=== PATIENT | female | born 1955 | race Caucasian/White ===

== ENCOUNTER 2024-10-25 04:07 | Emergency (ER) | payer MEDICARE, SELFPAY ==
[2024-10-25 04:43] LABS: % Basophils 0.9 % (0-2); % Eosinophils 2.6 % (0-6); % Immature Granulocytes 0.6 % (0-0.5); % Lymphocytes 48.3 % (20.5-51.1); % Monocytes 6.1 % (1.7-9.3); % Neutrophils 41.5 % (42.2-75.2); Absolute Basophils 0.1 10^3/uL (0-0.2); Absolute Eosinophils 0.1 10^3/uL (0-0.7); Absolute Lymphocytes 2.6 10^3/uL (1.2-3.4); Absolute Monocytes 0.3 10^3/uL (0.1-0.6); Absolute Neutrophils 2.2 10^3/uL (1.4-6.5); Hematocrit 43.7 % (37.0-47.0); Mean Corp Hgb Conc. 34.3 g/dL (33.0-37.0); Mean Corpuscular Hgb 35.1 pg (27.0-31.0); Mean Corpuscular Volume 102.3 fL (81.0-99.0); Mean Platelet Volume 8.7 fL (7.4-10.4); Nucleated Red Blood Cells % 0 %; Platelet Count 259 10^3/uL (130-400); Red Blood Cell Count 4.27 10^6/uL (4.20-5.40); Red Cell Dist. Width 12.4 % (11.5-14.5); White Blood Cell Count 5.4 10^3/uL (4.8-10.8)
[2024-10-25 04:57] LABS: ALT (SGPT) 33 U/L (0-35); AST (SGOT) 28 U/L (14-36); Albumin 4.6 g/dl (3.5-5.0); Alkaline Phosphatase 104 U/L (38-126); Blood Urea Nitrogen 20 mg/dl (7-17); Calcium 9.4 mg/dl (8.4-10.2); Carbon Dioxide 24 mmol/L (22-30); Chloride 104 mmol/L (98-107); Glucose 103 mg/dl (70-99); Potassium 3.9 mmol/L (3.5-5.1); Sodium 138 mmol/L (135-145); Total Protein 7.1 g/dl (6.3-8.2); eGFR > 60.00
[2024-10-25 05:09] LABS: Troponin I < 0.012 ng/ml
[2024-10-25 09:21] VITALS: BP 178/105
--- NOTE | 2024-10-25 09:25 | ED.GENMED ---
History of Present Illness
General
Chief Complaint: Dizziness
History of Present Illness
History of Present Illness:
69-year-old female presents to the emergency department due to heart palpitations. She also notes that she is having vertigo this morning which is a very common complaint for her. Has had vertigo dating back to many years, typically strikes when
she is looking down at the ground. States she woke up in middle the night with heart palpitations that lasted approximately 1 hour before resolving. Does not had any recurrent symptoms here. No active chest pain or shortness of breath. In
regards to her vertigo she requested dose of diazepam as this helped in the past. No recent cold or flu type symptoms, no recent fever or chills.
Past History
Past History
ED Past Medical History: None
Social History
Tobacco: Non-smoker
Review of Systems
Review of Systems
Allergies reviewed?: Yes
All Other Systems: ROS reviewed and negative except as documented in HPI and ROS
Phy Exam
Physical Exam
Physical Exam:
GEN: Well appearing, NAD, WDWN
HEENT: Oral mucosa moist, no scleral icterus, no nasal congestion
Cardiac: Regular rate and rhythm, no murmurs
Lung: No respiratory distress, no tachypnea
MSK: No gross deformity or injuries
Skin: Good color, no pallor or jaundice, no rashes
Neuro: AO x3; CN II-XII grossly intact. Patient has baseline strabismus of the right eye so there is asymmetry to extraocular motion particularly with lateral gaze however no gaze deficit, BUE strength 5/5 in all bean, sensation intact and
symmetric. BLE strength 5/5 in all bean, sensation intact and symmetric, gait is steady
Psych: Calm, cooperative
Course
Orders/Labs/Results
Orders:
Orders
10/25/24 04:15
Electrocardiogram (*1) Urgent
Reason for Study: Tachycardia
EKG- Treatment ONCE
10/25/24 04:23
CBC/With Diff [Complete Blood Count/With Diff] Urgent
Comprehensive Metabolic Panel Urgent
Troponin I Urgent
10/25/24 09:25
Diazepam [Valium] 5 mg PO NOW STA
Abnormal Lab Results
10/25/24
04:23
MCV 102.3 H fL
(81.0-99.0)
MCH 35.1 H pg
(27.0-31.0)
Immature Gran % 0.6 H %
(0-0.5)
Neutrophils % 41.5 L %
(42.2-75.2)
BUN 20 H mg/dl
(7-17)
Glucose 103 H mg/dl
(70-99)
10/25/24 04:23
10/25/24 04:23
Vital Signs
Initial and Last Documented VS:
Initial Vital Signs
Pulse Resp BP Pulse Ox
91 16 178/105 97
10/25/24 09:21 10/25/24 09:21 10/25/24 09:21 10/25/24 09:21
Last Documented Vital Signs
Pulse Resp BP Pulse Ox
91 16 178/105 97
10/25/24 09:21 10/25/24 09:21 10/25/24 09:21 10/25/24 09:21
MDM/Problems Addressed
MDM/Problems Addressed:
Patient has had no further heart palpitations in the ED. Her cardiac workup is benign. Recommend cardiology follow-up regarding this. She reports acute on chronic vertigo, diazepam given, this is likely peripheral vertigo given her unremarkable
neurologic exam and positional nature to symptoms, do not see indication for CT of the head. Discharged in stable condition
*Critical Care Note
Total Time (30-74mins, 75-104mins- exclusive of procedures): Not Applicable
ED Attending Note
-
Portions of this chart may have been created with voice recognition software.� Occasional wrong word or��sound alike� substitutions may have occurred due to the inherent limitations of voice recognition software.
Discharge Plan
Departure
Patient Disposition: Home (Routine Discharge)
Date of Disposition: 10/25/24
Time of Disposition: :
Patient with high blood pressure during this ER visit?: Yes
Discharge Problem:
Heart palpitations
Instructions: Heart Palpitations
Referrals:
Mitchell Godfrey MD [Active] -
Interventions
Interventions:
*Risk Screen - Suicide Last Done: 10/25/24 04:11
*Neglect/Abuse Screening Last Done: 10/25/24 04:11
*Nursing Disposition Last Done: 10/25/24 09:58
Discharge Date and Time
Discharge Date/Time: 10/25/24 09:58
Print Language: [id number]
[2024-10-25] MEDS: VALIUM 5 MG PO (09:28)
== END 2024-10-25 09:58 | disposition home or self-care (01) ==
LOC: EMR 04:07
PROVIDERS: Emergency Medicine; EMERGENCY PHYSICIAN Emergency Medicine; FAMILY PHYSICIAN Family Medicine
DX: R00.2 Palpitations (principal); R03.0 Elevated blood-pressure reading, without diagnosis of hypertension
CPT/HCPCS: 99284; 80053; 84484; 85025; 93005

== ENCOUNTER → 2024-11-24 15:41 | Outpatient (REF) | payer MEDICARE, SELFPAY | LOC: RCS 15:41 | PROVIDERS: ATTENDING PHYSICIAN Nuclear Medicine Nuclear Cardiology; FAMILY PHYSICIAN Family Medicine | DX: R42 Dizziness and giddiness (principal); R07.89 Other chest pain; R00.2 Palpitations; Z82.49 Family history of ischemic heart disease and other diseases of the circulatory system; I49.3 Ventricular premature depolarization | CPT/HCPCS: 93306 ==